=== PATIENT | female | born 1985 | race Caucasian/White ===

== ENCOUNTER 2025-02-25 10:19 | Emergency (ER) | payer MEDICAID, SELFPAY ==
--- NOTE | ~2025-02-25 | CT_ITS ---
CLINICAL HISTORY: c f L sided abscess, recent dental extractions CT maxillofacial with contrast Comparison: None provided Findings: No acute fractures. No dislocations. Temporomandibular joints are intact. Mucosal thickening of the maxillary sinus. Unremarkable orbital contents. Visualized intracranial contents are within normal limits. No foreign bodies. IMPRESSION: No evidence of soft tissue abscess. This document has been electronically signed by: Christofer Lewis MD on 02/25/2025 13:05:41
[2025-02-25 10:23] VITALS: BP 136/82; PULSE 93; RESP 20; TEMP 36.9; O2SAT 97; BMI 35.7
--- NOTE | 2025-02-25 10:55 | ED_ITS ---
HPI - General Adult General Chief complaint: Dental/Oral Stated complaint: ?infection jaw Time Seen by Provider: 02/25/25 10:54 Source: patient, RN notes reviewed and old records reviewed Mode of arrival: ambulatory Limitations: no limitations History of Present Illness ED Provider: Karlene DE LEON narrative: Patient is a 39 year-old female presenting to the emergency department with complaint of left upper jaw pain, left-sided facial swelling. States that she had 4 teeth extracted from her upper jaw on Wednesday. Had 3 sutures to right upper jaw and 1 suture to left upper jaw. Having pain in the area of her 1 suture on the left side. Denies fevers. Reports pain radiating to maxillary sinus area. Denies any difficulty swallowing but does report trouble eating due to pain. Has only been taking Tylenol but has been taking more than the recommended dose due to pain. Denies difficulty opening and closing jaw. MD complaint: facial pain and swelling Onset (ago): day(s) Related Data Home Medications ?Medication ?Instructions ?Recorded ?Confirmed acetaminophen 500 mg tablet 1,000 mg PO Q8-12H PRN Doyle n 02/25/25 02/25/25 albuterol sulfate 90 mcg/actuation 2 puff inhalation Q 6H PRN Wheezing 02/25/25 02/25/25 aerosol inhaler chlorhexidine gluconate 0.12 % 15 ml PO BEDTIME 02/25/25 mouthwash Previous Rx's ?Medication ?Instructions ?Recorded amoxicillin 875 mg-potassium 1 tab PO BID #14 tabs 05/10 clavulanate 125 mg tablet oxycodone 5 mg tablet 5 mg PO Q8H PRN severe pain (scale 02/25/25 score 7-10) #9 tabs Allergies Allergy/AdvReac Type Severity Reaction Status Date / Time aspirin (ASPIRIN) Allergy Unknown HIVES, Verified 02/25/25 10:25 N&V, Vomitting ibuprofen (IBUPROFEN) Allergy Unknown HIVES, Verified 02/25/25 10:25 N&V, Vomitting naproxen (NAPROXEN) Allergy Unknown SWOLLEN Verified 02/25/25 10:25 MOUTH, swelling, Swelling in mouth Review of Systems 2 Review of Systems: As per HPI Yes all other systems are reviewed and are negative Constitutional: Constitutional: Reports as [facility] Social History Social History Advance Directives: No Advance Directives Information Provided: No Do you have a plan to hurt others: No Plan Physical Exam ED Vital Signs: Vital Signs - 24 hr 02/25/25 10:23 02/25/25 14:33 Temperature 98.4 F 97.6 F Pulse Rate 93 698 H Respiratory Rate 20 19 Blood Pressure 136/82 125/77 Pulse Oximetry 97 98 Oxygen Delivery Method Room Air Room Air BMI result Body Mass Index 35.7 Vital signs have been reviewed and appear to be correct. Blood pressure normal. Heart rate normal. Respiratory rate normal. Temperature normal. Oxygen saturation normal. Const General: cooperative, healthy appearing and no acute distress Orientation/consciousness: oriented to person, oriented to place, oriented to time and patient oriented x3 Limitations: no limitations HENMT Head: Yes normocephalic and Yes atraumatic Ears: hearing grossly normal bilaterally, external ears normal, TM's normal bilaterally and EAC's normal General nose exam: Normal external nose present Face and sinus: Yes Facial tenderness on exam of face and sinuses (left maxillary area) and Yes other (swelling to left maxillary area) Mouth: oropharynx normal and moist mucous membranes Teeth and gingiva: edentulous (upper jaw, mild erythema, one suture to left upper jaw, no fluctuance) Throat: Yes posterior oropharynx normal, Yes uvula midline and No uvular edema Eyes Pupils: Equal, round and reactive pupils present Neck Neck: Yes normal visual inspection and Yes supple Resp Effort & Inspection: normal respiratory effort and able to speak in complete sentences Auscultation: clear to auscultation bilaterally Cardio Rate: regular rate Rhythm: regular rhythm Heart sounds: S1 normal heart sound present and S2 normal heart sound present GI Palpation (GI): Soft to palpation and nontender Auscultation: normoactive bowel sounds General: Yes no CVA tenderness Back/Spine/Pelvis Back: no CVA tenderness Skin General skin exam: elasticity normal and turgor normal Neuro General: oriented to person, oriented to place, oriented to time, patient oriented x3, moves all extremities, no focal motor deficits and CN's II-XI intact bilaterally Cranial nerves: Yes Equal, round and reactive pupils present Cognition (Neuro): normal cognition Extrem General: Yes full ROM, Yes no pedal edema and Yes no calf tenderness Psych Mental Status: mental status grossly normal Affect: normal affect Thought process: Normal thought process present Medications Administered Discontinued Medications Generic Name Dose Route Start Last Admin Trade Name Deepika PRN Reason Stop Dose Admin Iohexol 100 ml 02/25/25 12:23 02/25/25 12:23 Iohexol 350 Mg/Ml 100 Ml Infus..Btl IV 02/25/25 12:24 85 ml ONCE ONE Administration Oxycodone HCl 5 mg 02/25/25 11:29 02/25/25 11:44 Oxycodone Hcl Immed Release 5 Mg Tablet PO 02/25/25 11:30 5 mg ONCE ONE Administration Medical Decision Making Medical Decision Making [facility] Narrative: Patient is a 39 year-old female presenting to the emergency department with complaint of left upper jaw pain, left-sided facial swelling. On exam patient is awake, A+Ox3, VS WNL, afebrile, normal neurological exam without focal deficits, physical exam findings as above. Given reported symptoms and physical exam findings, initial differential includes but is not limited to dental infection, dental abscess, abscess of sinus. Labs unremarkable. CT face notable for no evidence of infection. My interpretation is in agreement with the radiologist's interpretation. Will treat with course of Augmentin. Patient has follow up appointment with dentist on the . We will also send a prescription for a few oxycodone for severe pain and discussed with patient the importance of not taking more than recommended dose of Tylenol. Strict return precautions discussed at bedside. Patient verbalized understanding of and agreement with plan. Differential Diagnosis Differential Diagnoses: The differential diagnosis associated with the presentation includes As per [facility] Admission/Observation Consideration of admission/observation: Escalation of care including admission/observation considered Patient would have been admitted to the hospital and transferred to appropriate facility had their clinical presentation warranted hospital admission. Lab Data [facility] Lab Attestation statement: I reviewed the patient's lab results. as per [facility] 02/25/25 11:36 02/25/25 11:36 Labs: Lab Results 02/25/25 02/25/25 Range/Units 11:36 12:43 WBC 8.2 (4.8-10.8) X10*3/uL RBC 5.36 (4.20-5.50) X10*6/uL Hgb 15.1 (12.0-16.0) g/dl Hct 45.7 (37.0-47.0) % MCV 85.3 (80.0-98.0) fL MCH 28.2 (27.0-33.0) pg MCHC 33.0 (31.0-35.0) g/dl RDW 13.1 (11.0-16.0) % Plt Count 285 (160-400) X10*3/uL MPV 9.4 (9.4-12.3) fL Immature Gran % (Auto) 0.1 (0.0-0.4) % Neut % (Auto) 54.5 (45-73) % Lymph % (Auto) 36.7 (20-40) % Sunflower % (Auto) 8.3 (2-11) % Eos % (Auto) 0.0 (0-4) % Baso % (Auto) 0.4 (0-2) % Lymph # (Auto) 3.0 (1.2-4.9) X10*3/uL Sunflower # (Auto) 0.7 (0.1-1.2) X10*3/uL Eos # (Auto) 0.0 (0.0-0.4) X10*3/uL Baso # (Auto) 0.0 (0.0-0.2) X10*3/uL Abs Immat Gran (auto) 0.01 (0.00-0.03) X10*3/uL Absolute Neuts (auto) 4.4 (2.0-8.3) x10*3/uL Absolute Nucleated RBC 0.000 (0.0-0.012) X10*3/uL Nucleated RBC % (auto) 0.0 (0.0-0.2) /100WBC Sodium 141 (135-145) mmol/L Potassium 4.1 (3.3-5.1) mmol/L Chloride 107 (96-108) mmol/L Carbon Dioxide 26 (22-29) mmol/L Anion Gap 12 (12-20) BUN 13 (9-16) mg/dL Creatinine 0.70 (0.5-1.4) mg/dL Estim Creat Clear Calc 127.6 Estimated GFR > 60 Random Glucose 99 (60-115) mg/dL Calcium 9.6 (8.4-10.2) mg/dL Total Bilirubin 0.3 (0.0-1.0) mg/dL AST 20 (5-31) U/L ALT 29 (0-31) U/L Alkaline Phosphatase 62 (39-117) U/L Total Protein 7.5 (6.5-8.0) g/dL Albumin 4.9 (3.5-5.0) g/dL Acetaminophen < 3 (<30) mcg/mL Independent Interpretation I performed an independent interpretation of an: CT Scan Interpretation: No evidence of abscess on CT face Radiology Impression Discussion of test interpretation with radiology: I have reviewed the radiologist's reading. Radiologist Impression: CT maxillofacial with contrast Comparison: None provided Findings: No acute fractures. No dislocations. Temporomandibular joints are intact. Mucosal thickening of the maxillary sinus. Unremarkable orbital contents. Visualized intracranial contents are within normal limits. No foreign bodies. IMPRESSION: No evidence of soft tissue abscess. External Record Review External record reviewed: Inpatient record, Office record and Outpatient record Prescription Management I considered prescription management with: Pain Medication and Antibiotic Discharge Plan Discharge Clinical Impression: Dental infection Patient Disposition: Home, Self-Care Additional Instructions: You were evaluated in the emergency department today for complaint of dental pain and facial swelling. You are being treated for a dental infection with antibiotics. Please complete the full course of antibiotics as prescribed even if your symptoms improve. IT IS IMPORTANT THAT YOU FOLLOW UP WITH YOUR DENTIST AT YOUR PREVIOUSLY SCHEDULED APPOINTMENT. We recommend that you take 600 mg of ibuprofen or 650 mg Tylenol every 6 hours as needed for pain. If necessary, you can alternate these medications every 3 hours. For example, at 9:00 a.m. take Tylenol, then at noon take ibuprofen, then at 3:00 p.m. take Tylenol, etc.. You are being prescribed a short course of oxycodone for severe pain. Do not take this medication with alcohol. Return to the emergency department if you develop worsening pain, swelling, difficulty swallowing, difficulty breathing, fever, or any other concerning symptoms. Prescriptions: New oxycodone 5 mg tablet 5 mg PO Q8H PRN (Reason: severe pain (scale score 7-10)) Qty: 9 0RF Rx Instructions: Partial Fill upon patient request. amoxicillin-pot clavulanate 875-125 mg tablet 1 tab PO BID Qty: 14 0RF No Action acetaminophen 500 mg tablet 1,000 mg PO Q8-12H PRN (Reason: Pain) Rx Instructions: Patient took dose chlorhexidine gluconate 0.12 % mouthwash 15 ml PO BEDTIME albuterol sulfate 90 mcg/actuation Hfa Aerosol Inhaler 2 puff INHALATION Q6H PRN (Reason: Wheezing) Print Language: Urdu
--- OUTSIDE RECORDS SUMMARY | 2025-02-25 11:13 | XMS_ITS | Clinical Summary ---
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 Active Levonorgestrel (Mirena, 52 MG,) 20 MCG/DAY intrauterine device Intrauterine Active Albuterol Sulfate 108 (90 Base) MCG/ACT aerosol powder 2 puffs in the morning and 2 puffs at noon and 2 puffs in the evening and 2 puffs before bedtime. Active Active Problems Problem Noted Date Diagnosed Date History of pilonidal cyst 02/25/2023 Overview (02/25/2023): Removal ~ 2022 Chronic discomfort to coccyx are since removal, worsens when sitting for long periods on hard surfaces. Denies reoccurrence of cyst. Asthma in adult 09/09/2022 Bipolar 1 disorder (CMS/HCC) 09/09/2022 Complex posttraumatic stress disorder 09/09/2022 Immunizations Immunization Administration Dates Next Due DTP 09/08/1989, 6,1984,1984,1984 Hep B, Adolescent or Pediatric 09/27/1996,1995,03/10/1996 IPV 04/01/1988,1984,1984 Influenza, IIV3, injectable 03/05/2021,1 ,02/24/2016,2012 Influenza, Split (incl. madi fied surface antigen) 08/07/2010 MMR 12/20/1996,09/08/1989 TD (adult), 2 Lf tetanus tox oid, preservative free, adsorbed 08/07/1999 Tdap 03/16/2013 Varicella 04/23/1988 Family History Medical History Relation Name Comments Hyperthyroidism Mother Ovarian cysts Mother Fibroids Sister Relation Name Status Comments Mother Sister Social History Tobacco Use Types Packs/Day Years Used Date Smoking Tobacco: Some Days Cigarettes Smokeless Tobacco: Never Tobacco Cessation:Ready to Q uit: Not Asked; Counseling Given: Not Answered Alcohol Use Standard Drinks/Week Comments Never 0 (1 standard drink = 0.6 oz pur e alcohol) Alcohol Answer Date Recorded Q1: How often do you have a drink containing alc ohol? 1 02/24/2023 Average Number of Drinks Not on file 023 Frequency of Binge Drinking Not on file 02/14 Not on file 02/24/2023 Housing Stability Answer Date Recorded What is your housing situation today? I do not have housing (Staying with others, in a hotel, in a nursing home, living outside on the street, on a beach, in a car, or in a park 02/24/[address] you li ve. Do you have problems with any of the following? Not on file 02/24/2023 Intimate Partner Violence Answer Date R ecorded Within the last year, have y ou been afraid of your partner or ex-partner? 2 02/24/2023 Within the last year, have y ou been humiliated or emotionally abused in other ways by your partner or ex-partner? 2 Within the last year, have y ou been kicked, hit, slapped, or otherwise physically hurt by your partner or ex-partner? 2 02/24/2023 Within the last year, have y ou been raped or forced to have any kind of sexual activity by your partner or ex-partner? 2 02/24/2023 Comments Unknown Sex and Gender Information Value Date Recorded Sex Assigned at Female 05/28/2022 1:34 PM EST Legal Sex Female 8:32 PM EDT Gender Identity Female 05/28/2022 1:34 PM EST Sexual Orientation Choose not to disclose 2022 12:22 PM EDT Last Filed Vital Signs Vital Sign Reading Time Taken Comments Blood Pressure 121/77 04/23/2023 11:53 AM EST Pulse 77 04/23/2023 11:53 AM EST Temperature 36.1 C (96.9 F) 04/23/2023 11:53 AM EST Respiratory Rate 18 04/23/2023 11:53 AM EST Oxygen Saturation 98% 04/23/2023 11:53 AM EST Inhaled Oxygen Concentration - - Weight 99.3 kg (219 lb) 04/23/2023 11:53 AM EST Height 167.6 cm (5' 6 ) 03/05/2021 1:45 PM EDT Body Mass Index 35.35 03/05/2021 1:45 PM EDT Plan of Treatment Health Maintenance Due Date Last Done Comments Depression Screening 1984 SDOH Screening 1984 Disability Screening 1984 IPV Vaccines (4 of 4 - 4-dose series) 09/29/1988 04/01/1988, 1984, 1984 Alcohol/Substance Use Screening 1996 Family Planning (PISQ) 1999 HPV Vaccines (1 - 3-dose series) 1999 Pneumococcal Vaccine: Pediatrics (0 to 5 Years) and At-Risk Patients (6 to 49) Years (1 of 2 - PCV) 2003 DTaP/Tdap/Td Vaccines (7 - Td or Tdap) 03/16/2023 03/16/2013, 08/07/1999, 09/08/1989, Additional history exists Tobacco Screening 03/02/2024 03/02/2023 Mammogram 2024 COVID-19 Vaccine ( - season) 2025 Influenza Vaccine (#1) 2025 , 03/03/2017, 02/24/2016, Additional history exists Cervical Cancer Screening 03/05/2026 HPV/Cotest 03/05/2026 Pap Smear 03/05/2026 03/05/2021 Zoster Vaccines (1 of 2) 2034 RSV Patients and Patients Aged 60 years or older (1 - 1-dose 75+ series) 2059 Hepatitis B Vaccines Completed 09/27/1996, 04/24/1996, 03/10/1996 HIV Screening Completed 05/09/2015 Hepatitis C Screening Completed 05/09/2015 HIB Vaccines Aged Out No longer eligi ble based on patient's age to complete this topic Hepatitis A Vaccines Aged Out No long er eligible based on patient's age to complete this topic Meningococcal B Vaccine Aged Out No l onger eligible based on patient's age to complete this topic Meningococcal Vaccine Aged Out No jesús mario alberto eligible based on patient's age to complete this topic RSV under 20 months Aged Out No longe r eligible based on patient's age to complete this topic Rotavirus Vaccines Aged Out No longer eligible based on patient's age to complete this topic Procedures Procedure Name Priority Date/Time Associated Diagnosis Comments PAP SMEAR Routine 03/05/2021 12:00 AM EDT HEPATITIS C ANTIBODY (EXTERNAL RESULTS ONLY) Routine 05/09/2015 9:45 AM EST HIV-1 ANTIBODY, EIA Routine 05/09/2015 from Last 3 Months or Most Recently Relevant to Health Maintenance Results * Pap Smear (03/05/2021 12:00 AM EDT) Swab Historical Provider LAB CYTOLOGY ORDERABLES F inal Result * Hepatitis C Antibody (05/09/2015 9:45 AM EST) Hepatitis C Antibody Nonreactive Blood 05/09/2015 9:45 AM EST us Historical Provider POINT OF CARE TEST ENTER/ EDIT ORDERABLES Final Result * HIV-1 antibody, EIA (05/09/2015) External HIV-1 Antibody Negative Blood Venous blood specimen / Unknown Historical Provider LAB BLOOD ORDERABLES Bridgett felder Result from Last 3 Months or Most Recently Relevant to Health Maintenance Insurance [facility] C[facility] Care Teams Thermal Surfacing Machine Operator Relationship Specialty Start Date End Date Vee Dye Unassigned PCP - General Family Medicine 12/19/24 Roro Pedro Community Health Worker 02/24/23
[2025-02-25 11:44] LABS: MANUAL DIFF FLAG NO
[2025-02-25] MEDS: oxyCODONE HCl Immed Release 5 MG TABLET PO (11:44)
[2025-02-25 11:45] LABS: Hematocrit 45.7 % (37.0-47.0); Hemoglobin 15.1 g/dl (12.0-16.0); Imm Gran Abs Auto 0.01 X10*3/uL (0.00-0.03); Imm Gran Pct Auto 0.1 % (0.0-0.4); Lymphocytes Absolute Auto 3.0 X10*3/uL (1.2-4.9); Mean Corpuscular HGB Conc 33.0 g/dl (31.0-35.0); Mean Corpuscular Hemoglobin 28.2 pg (27.0-33.0); Mean Corpuscular Volume 85.3 fL (80.0-98.0); NRBC Abs Auto 0.000 X10*3/uL (0.0-0.012); NRBC Pct Auto 0.0 /100WBC (0.0-0.2); Platelet Count 285 X10*3/uL (160-400); Red Blood Count 5.36 X10*6/uL (4.20-5.50); White Blood Count 8.2 X10*3/uL (4.8-10.8)
[2025-02-25 11:59] LABS: Alanine Aminotransferase 29 U/L (0-31); Albumin Level 4.9 g/dL (3.5-5.0); Alkaline Phosphatase 62 U/L (39-117); Anion Gap 12 (12-20); Aspartate Amino Transferase 20 U/L (5-31); Blood Urea Nitrogen 13 mg/dL (9-16); Calcium 9.6 mg/dL (8.4-10.2); Carbon Dioxide 26 mmol/L (22-29); Chloride 107 mmol/L (96-108); Creatinine Clr Calc Pharmacy 127.6; Estimated Glomerular Filt Rate > 60; Potassium 4.1 mmol/L (3.3-5.1); Sodium 141 mmol/L (135-145); Total Protein 7.5 g/dL (6.5-8.0)
[2025-02-25] MEDS: iohexoL 350 MG/ML 100 ML INFUS..BTL IV (12:23)
[2025-02-25 13:06] LABS: Acetaminophen LAB < 3 mcg/mL (<30)
--- NOTE | 2025-02-25 13:29 | PHA.MEDREC ---
Addendum entered by Dani Justin PharmD 02/25/25 14:09: MED REC CHECKED BY [facility] Original Note: Pharmacy Consult ? Medication Reconciliation Pharmacy has completed the medication reconciliation. Confirmed medication list with patient.
[2025-02-25 14:33] VITALS: BP 125/77; PULSE 69; RESP 19; TEMP 36.4; O2SAT 98
[2025-02-25 15:08] VITALS: BP 125/77; PULSE 69; RESP 19; TEMP 36.4; O2SAT 98
== END 2025-02-25 15:08 | disposition home or self-care (01) ==
PROVIDERS: Registered Nurse Emergency; Emergency Provider Emergency Medicine
DX: K04.7 Periapical abscess without sinus (principal); M27.2 Inflammatory conditions of jaws
CPT/HCPCS: 36415; 70487; 80053; 80143; 85025; 99283; 99285; Q9967

== ENCOUNTER → 2025-02-25 11:29 | Outpatient (BNV) | payer MEDICAID, SELFPAY | PROVIDERS: Emergency Provider Emergency Medicine; Visit Provider Nuclear Medicine | DX: K04.7 Periapical abscess without sinus (principal) | CPT/HCPCS: 70487 ==